=== PATIENT | female | born 1975 | race Caucasian/White ===

== ENCOUNTER 2016-11-21 12:11 | Emergency (ER) | payer MEDICARE, MEDICAID ==
[~2016-11-21] VITALS: Ht 152.4 cm; Wt 63.5 kg
[2016-11-21] MEDS ORDERED: NKM (12:27)
--- NOTE | 2016-11-21 12:42 | Emergency Room Report ---
History of Present Illness General Chief Complaint: Abdominal Pain Source: Patient Present Illness HPI 41-year-old female presents emergency department complaining of nausea, vomiting and diarrhea x3 days. Patient reports that nausea vomiting or current on the first day with diarrhea starting on the second day. Patient denies recent travel reports grandmother had similar symptoms. Denies fever she reports chills. Patient reports abdominal cramping pain generalized throughout the abdomen which is temporarily relieved with bowel movements and after vomiting. Patient denies blood in the vomit or stool. She denies recent antibiotic use. She denies frequency urgency or hematuria. She denies . Denies CP, Palpitations, LOC, AMS, dizziness, Changes in Vision, Sensation, paresthesias, or a sudden severe headache. Allergies: Coded Allergies: No Known Allergies (Unverified , 11/21/16) Patient History Past Medical History: see triage record Past Surgical History: none Pertinent Family History: none Last Menstrual Period: last week Now: No Immunizations: UTD Reviewed Nursing Documentation: PMH: Agreed, PSxH: Agreed Nursing Documentation-PMH Past Medical History: No Stated History Review of Systems All Other Systems: negative except mentioned in HPI Physical Exam Vital Signs Date Time Temp Pulse Resp B/P Pulse Ox O2 Delivery O2 Flow Rate FiO2 11/21/16 12:23 99.0 64 20 135/87 99 Room Air Sp02 EP Interpretation: reviewed, normal General Appearance: no apparent distress, alert, GCS 15, non-toxic Head: normocephalic, atraumatic Eyes: bilateral eye PERRL, bilateral eye normal inspection ENT: hearing grossly normal, normal pharynx, no angioedema, normal voice Neck: full range of motion, supple/symm/no masses Respiratory: chest non-tender, lungs clear, normal breath sounds, speaking full sentences Cardiovascular #1: regular rate, rhythm, no edema Gastrointestinal: normal bowel sounds - mildly hyperactive BS in all 4 quadrants. , non tender, soft, no guarding, no rebound, other - Negative [place] signs, Negative MacBurney's sign, Negative Rosvigns Sign, Negative Psoas , No Peritoneal signs. Rectal: deferred Genitourinary: normal inspection, no CVA tenderness Musculoskeletal: back normal, gait/station normal, normal range of motion, non- tender Neurologic: alert, oriented x3, responsive, motor strength/tone normal, sensory intact, speech normal Psychiatric: judgement/insight normal, memory normal, mood/affect normal Skin: normal color, no rash, warm/dry, well hydrated Lymphatic: no adenopathy Medical Decision Making PA Attestation Dr. Salguero is my supervising Physician whom patient management has been discussed with. Diagnostic Impression: Primary Impression: Abdominal pain Qualified Codes: R10.84 - Generalized abdominal pain Additional Impression: Gastroenteritis ER Course 41-year-old female presents emergency department complaining of nausea, vomiting and diarrhea x3 days. Patient reports that nausea vomiting or current on the first day with diarrhea starting on the second day. Patient denies recent travel reports grandmother had similar symptoms. Denies fever she reports chills. Patient reports abdominal cramping pain generalized throughout the abdomen which is temporarily relieved with bowel movements and after vomiting. Patient denies blood in the vomit or stool. She denies recent antibiotic use. She denies frequency urgency or hematuria. She denies . Ddx considered but are not limited to GE, colitis, acute appy, SBO, * Vital signs: pt. is afebrile, H&PE are most consistent with GE, PE of abdomen did not suggest acute intra- abdominal process no suspicion for appendicitis, no appreciable TTP, hyperactive BS in all 4 quadrants. ORDERS: -CBC:unremarkable -CMP:electrolytes are ok, good renal function. -Lipase: WNl -UA: few bacteria many epithelial cells, no wbc's consistent with contamination. -Urine Hcg: negative ED INTERVENTIONS: -1000 NS iv hydration, - 4mg IVP zofran for nausea. -20mg Bentyl PO -150mg Zantac PO -20mg Toradol IV for pain -- Pt was able to tolerate oral fluid challenge. d/w pt. results of lab work, and close follow up instructions. d/w pt. to return to ED with worsening or new symptoms. DISCHARGE: At this time pt. is stable for d/c to home. Will provide printed patient care instructions, and any necessary prescriptions. Care plan and follow up instructions have been discussed with the patient prior to discharge. Labs Test 11/21/16 12:40 White Blood Count 12.7 K/UL (4.8-10.8) Red Blood Count 4.78 M/UL (4.20-5.40) Hemoglobin 14.8 G/DL (12.0-16.0) Hematocrit 46.5 % (37.0-47.0) Mean Corpuscular Volume 97 FL (80-99) Mean Corpuscular Hemoglobin 31.0 PG (27.0-31.0) Mean Corpuscular Hemoglobin Concent 31.9 G/DL (32.0-36.0) Red Cell Distribution Width 11.8 % (11.6-14.8) Platelet Count 498 K/UL (150-450) Mean Platelet Volume 5.4 FL (6.5-10.1) Neutrophils (%) (Auto) % (45.0-75.0) Lymphocytes (%) (Auto) % (20.0-45.0) Monocytes (%) (Auto) % (1.0-10.0) Eosinophils (%) (Auto) % (0.0-3.0) Basophils (%) (Auto) % (0.0-2.0) Differential Total Cells Counted 100 Neutrophils % (Manual) 88 % (45-75) Lymphocytes % (Manual) 10 % (20-45) Monocytes % (Manual) 2 % (1-10) Eosinophils % (Manual) 0 % (0-3) Basophils % (Manual) 0 % (0-2) Band Neutrophils 0 % (0-8) Platelet Estimate Adequate Platelet Morphology Normal Hypochromasia Macrocytosis 1+ Urine Color Yellow Urine Appearance Slightly cloudy Urine pH 5 (4.5-8.0) Urine Specific [place] 1.025 (1.005-1.035) Urine Protein 2+ (NEGATIVE) Urine Glucose (UA) Negative (NEGATIVE) Urine Ketones 3+ (NEGATIVE) Urine Occult Blood 1+ (NEGATIVE) Urine Nitrite Negative (NEGATIVE) Urine Bilirubin Negative (NEGATIVE) Urine Urobilinogen Normal MG/DL (0.0-1.0) Urine Leukocyte Esterase 1+ (NEGATIVE) Urine RBC 2-4 /HPF (0 - 2) Urine WBC 2-4 /HPF (0 - 2) Urine Squamous Epithelial Cells Moderate /LPF (NONE/OCC) Urine Bacteria Few /HPF (NONE) Urine HCG, Qualitative Negative Sodium Level 142 mEQ/L (135-145) Potassium Level 3.4 mEQ/L (3.4-4.9) Chloride Level 99 mEQ/L (98-107) Carbon Dioxide Level 23 mEQ/L (20-30) Anion Gap 20 (5-15) Blood Urea Nitrogen 8 mg/dL (7-23) Creatinine 1.0 mg/dL (0.5-0.9) Estimat Glomerular Filtration Rate > 60 mL/min (>60) Glucose Level 156 mg/dL (74-106) Calcium Level 9.8 mg/dL (8.6-10.2) Total Bilirubin 0.4 mg/dL (0.0-1.2) Aspartate Amino Transf (AST/SGOT) 19 U/L (5-40) Alanine Aminotransferase (ALT/SGPT) 8 U/L (3-33) Alkaline Phosphatase 49 U/L (35-104) Total Protein 9.8 g/dL (6.6-8.7) Albumin 5.2 g/dL (3.5-5.2) Globulin 4.6 g/dL Albumin/Globulin Ratio 1.1 (1.0-2.7) Lipase 22 U/L (< 60) Last Vital Signs Date Time Temp Pulse Resp B/P Pulse Ox O2 Delivery O2 Flow Rate FiO2 11/21/16 12:23 99.0 64 20 135/87 99 Room Air Disposition: HOME, SELF-CARE Condition: Stable Scripts Ranitidine Hcl* (ZANTAC*) 150 Mg Tablet 150 MG ORAL TWICE A DAY for 30 Days, #60 TAB Prov: Lisset Hernandez 11/21/16 Metoclopramide Hcl* (REGLAN*) 10 Mg Tablet 10 MG ORAL THREE TIMES A DAY, #20 TAB Prov: Lisset [email or web address] 11/21/16 Dicyclomine Hcl* (BENTYL*) 10 Mg Capsule 10 MG ORAL FOUR TIMES A DAY for 4 Days, #16 CAP Prov: Lisset Hernandez. 11/21/16 Patient Instructions: Abdominal Pain, Adult, Viral Gastroenteritis, Adult Additional Instructions: Take medications as directed. Follow up with PCP in 3-5 days Return sooner to ED if new symptoms occur, or current symptoms become worse. - Please note that this Emergency Department Report was dictated using [employer] analyst technology software, occasionally this can lead to erroneous entry secondary to interpretation by the dictation equipment. Lisset Hernandez Nov 21, 2016 12:42
[2016-11-21] MEDS ORDERED: Ketorolac 30mg Inj IV ONE (12:45)
[2016-11-21] MEDS: Dicyclomine 10mg Cap ORAL ONE ×2 (12:46→13:59)
[2016-11-21 13:01] LABS: APPEARANCE,URINE SLIGHTLY CLOUDY; KETONES,URINE 3+ (NEGATIVE); LEUKOCYTE ESTERASE ,URINE 1+ (NEGATIVE); MEAN CORPUSCULAR HGB CONC 31.9 G/DL (32.0-36.0); MEAN CORPUSCULAR VOLUME 97 FL (80-99); MEAN PLATELET VOLUME 5.4 FL (6.5-10.1); NITRITE,URINE NEGATIVE (NEGATIVE); PH,URINE 5 (4.5-8.0); PLATELET COUNT 498 K/UL (150-450); PROTEIN,URINE 2+ (NEGATIVE); RED BLOOD COUNT 4.78 M/UL (4.20-5.40); RED CELL DISTRIBUTION WIDTH 11.8 % (11.6-14.8); UROBILINOGEN,URINE NORMAL MG/DL (0.0-1.0); WHITE BLOOD COUNT 12.7 K/UL (4.8-10.8)
[2016-11-21 13:11] LABS: BACTERIA,URINE FEW /HPF; SQUAMOUS EPITHELIAL CELL,UR MODERATE /LPF (NONE/OCC)
[2016-11-21 13:14] LABS: ALANINE AMINOTRANSFERASE 8 U/L (3-33); ALBUMIN/GLOBULIN RATIO 1.1 (1.0-2.7); ANION GAP 20 (5-15); ASPARTATE AMINO TRANSFERASE 19 U/L (5-40); CALCIUM 9.8 mg/dL (8.6-10.2); CARBON DIOXIDE 23 mEQ/L (20-30); CHLORIDE 99 mEQ/L (98-107); GLOMERULAR FILTRATION RATE > 60 mL/min (>60); HEMOLYSIS 2; LIPASE 22 U/L (< 60); POTASSIUM 3.4 mEQ/L (3.4-4.9); SODIUM 142 mEQ/L (135-145); TOTAL PROTEIN 9.8 g/dL (6.6-8.7)
[2016-11-21 13:23] LABS: BAND NEUTROPHILS % (MANUAL) 0 % (0-8); BASOPHILS % (MANUAL) 0 % (0-2); EOSINOPHILS % (MANUAL) 0 % (0-3); LYMPHOCYTES % (MANUAL) 10 % (20-45); NEUTROPHILS % (MANUAL) 88 % (45-75); PLATELET ESTIMATE ADEQUATE; PLATELET MORPHOLOGY NORMAL; TOTAL CELLS COUNTED 100
[2016-11-21 13:24] LABS: MACROCYTES 1+
[2016-11-21 13:26] VITALS: BP 121/59
[2016-11-21] MEDS ORDERED: Famotidine 20 MG/ 2ML VIAL IVP ONE (13:30)
[2016-11-21] MEDS ORDERED: Metoclopramide 10mg/2ml Inj IVP ONE (13:30)
[2016-11-21] MEDS ORDERED: Lidocaine 2% Visc 15ml soln ORAL ONE (13:45)
[2016-11-21] MEDS ORDERED: BENTYL10 MG ORAL (13:55)
[2016-11-21] MEDS ORDERED: ZANTAC150 MG ORAL (13:55)
[2016-11-21] MEDS ORDERED: REGLAN10 MG ORAL (13:55)
[2016-11-21 14:17] VITALS: BP 127/72
[2016-11-21 14:33] VITALS: BP 127/72
== END 2016-11-21 14:49 | disposition home or self-care (01) ==
LOC: EMR 13:15
DX: K52.9 Noninfective gastroenteritis and colitis, unspecified (principal); R10.84 Generalized abdominal pain
CPT/HCPCS: 36415; 80053; 81003; 81025; 83690; 85007; 85025; 96374; 96375; 99284; J1885; J2405; J2765; S0028

== ENCOUNTER 2018-08-28 15:39 | Emergency (ER) | payer MEDICARE, MEDICAID ==
[~2018-08-28] VITALS: Ht 152.4 cm; Wt 81.6 kg
[~2018-08-28 15:39] MED LIST: BENTYL10 MG ORAL; NKM; REGLAN10 MG ORAL; ZANTAC150 MG ORAL
[2018-08-28 15:53] VITALS: BP 121/73
--- NOTE | 2018-08-28 16:12 | Emergency Room Report ---
History of Present Illness General Chief Complaint: Flu Like Symptoms Source: Patient Present Illness HPI 43-year-old female patient presents the ER complaining of nausea vomiting diarrhea for the past 2 days. Also complaining of sore throat and headache during this time. denies blood in vomit or stool. Denies recent travel outside the country. Also complaining of cough. Denies shortness of breath or chest pain. Denies neck or calf pain. Patient afebrile in the ER currently. Denies abdominal pain. Denies dysuria, hematuria. Reports last episode of vomiting an hour ago. States is been able to tolerate p.o. Gatorade however has not been able to eat food. Denies history of asthma or heart disease. States received flu vaccination this year. Allergies: Coded Allergies: No Known Allergies (Unverified , 11/21/16) Patient History Past Medical History: see triage record Last Menstrual Period: 08/22/18 Reviewed Nursing Documentation: PMH: Agreed; PSxH: Agreed Nursing Documentation-PMH Past Medical History: No Stated History Review of Systems All Other Systems: negative except mentioned in HPI Physical Exam Vital Signs Date Time Temp Pulse Resp B/P (MAP) Pulse Ox O2 Delivery O2 Flow Rate FiO2 08/28/18 15:46 98.1 68 18 121/73 95 Room Air Sp02 EP Interpretation: reviewed, normal General Appearance: well appearing, no apparent distress, alert, GCS 15, non- toxic Head: normocephalic, atraumatic Eyes: bilateral eye normal inspection, bilateral eye PERRL ENT: hearing grossly normal, normal pharynx, no angioedema, normal voice, TMs + canals normal, uvula midline, moist mucus membranes, other - Uvula midline Neck: full range of motion Respiratory: lungs clear, normal breath sounds, no rhonchi, no respiratory distress, no accessory muscle use, no wheezing, speaking full sentences Cardiovascular #1: regular rate, rhythm, no edema Gastrointestinal: non tender, soft, no mass, non-distended, no guarding, no rebound, other - Negative [place], negative Rovsing Genitourinary: no CVA tenderness Musculoskeletal: back normal, digits/nails normal, gait/station normal, normal range of motion, non-tender Neurologic: alert, oriented x3, responsive, motor strength/tone normal, sensory intact Skin: no rash Lymphatic: no adenopathy Medical Decision Making PA Attestation Dr. Cai is my supervising Physician whom patient management has been discussed with. Diagnostic Impression: Primary Impression: Vomiting and diarrhea Additional Impression: Flu-like symptoms ER Course Pt. presents to the ED c/o vomiting and diarrhea, cough and congestion. Ddx considered but are not limited to viral syndrome, gastritis, enteritis, influenza, acid reflux, viral URI, PNA. Vital signs: are WNL, pt. is afebrile at discharge. ORDERS: none required at this time, the diagnosis is clinical ED COURSE: Provide patient with Zofran, GI cocktail, IV fluids. No abdominal TTP, negative ROvsing, normal bowel sounds. PE benign. Lungs clear to auscultation, no wheezes rhonchi rales. Chest x-ray negative for acute disease, low suspicion for pneumonia, does not require antibiotics at this time. UA shows many epithelial cells, patient denies symptoms, does not require abx, low suspicion for UTI, urine negative. Will provide patient with Tamiflu to cover for influenza. Patient informed of likely viral cause of symptoms. No fever, no blood in stool, no recent travel or hospitalizations, does not require abx treatment at this time. No signs of dehydration, moist mucus membranes, cap refil <2seconds, normal skin turgor. Patient reports eating and drinking normally. Patient instructed on BRAT diet. Patient instructed to remain hydrated, drink plenty of fluids. Patient questions asked and answered. Patient states understanding and agreement to treatment plan. ER precautions given. Patient reports feeling better. Able to tolerate PO fluids prior to discharge. DISCHARGE: At this time pt. is stable for d/c to home. Patient is resting comfortably, laughing, in no acute distress, nontoxic appearing. Will provide printed patient care instructions, and any necessary prescriptions. Care plan and follow up instructions have been discussed with the patient prior to discharge. Patient instructed to followup with PCP in 3-5 days. Patient reports understanding and agreement to treatment plan. Patient questions asked and answered. ER precautions given; patient instructed to return to ER for new or worsening of symptoms including but not limited to fever, intractable vomiting, severe abdominal pain, blood in stool. - Please note that this Emergency Department Report was dictated using [email or web address] automobile technology software, occasionally this can lead to erroneous entry secondary to interpretation by the dictation equipment. Labs Test 08/28/18 16:17 Urine Color Yellow Urine Appearance Slightly cloudy Urine pH 5 (4.5-8.0) Urine Specific [place] 1.020 (1.005-1.035) Urine Protein 1+ (NEGATIVE) Urine Glucose (UA) Negative (NEGATIVE) Urine Ketones Negative (NEGATIVE) Urine Blood 2+ (NEGATIVE) Urine Nitrite Negative (NEGATIVE) Urine Bilirubin Negative (NEGATIVE) Urine Urobilinogen Normal MG/DL (0.0-1.0) Urine Leukocyte Esterase 1+ (NEGATIVE) Urine RBC 5-10 /HPF (0 - 2) Urine WBC 2-4 /HPF (0 - 2) Urine Squamous Epithelial Cells Many /LPF (NONE/OCC) Urine Bacteria Moderate /HPF (NONE) Urine HCG, Qualitative Negative (NEGATIVE) Chest X-Ray Diagnostic Results Chest X-Ray Diagnostic Results : Chest X-Ray Ordered: Yes # of Views/Limited/Complete: 1 View Indication: Chest Pain EP Interpretation: Yes PA Xray: Interpretation reviewed, by supervising MD, and agrees with findings. Interpretation: no consolidation, no effusion, no pneumothorax Impression: No acute disease PA Scribe Text Walt Estrada PA-Delvin Last Vital Signs Date Time Temp Pulse Resp B/P (MAP) Pulse Ox O2 Delivery O2 Flow Rate FiO2 08/28/18 15:57 68 18 Room Air 08/28/18 15:53 98.1 121/73 95 Status: improved Disposition: HOME, SELF-CARE Condition: Stable Scripts Oseltamivir Phosphate (Tamiflu) 75 Mg Capsule 75 MG ORAL TWICE A DAY for 5 Days, #10 CAP Prov: Perez [email or web address] 08/28/18 Ondansetron (Zofran) 4 Mg Tablet 4 MG ORAL Q8H PRN for Nausea & Vomiting, #10 TAB 0 Refills Prov: Perez Estrada 08/28/18 D-Methorphan/PE/Acetaminophen (Sudafed PE Pressure+Pain+Cough) 1 Each Tablet 1 EACH PO TID, #24 TAB Prov: Perez [email or web address] 08/28/18 Patient Instructions: Diarrhea, Adult, [id number], Food Choices to Help Relieve Diarrhea, Adult, Influenza, Adult, [id number], Nausea and Vomiting, Adult, [id number], Sore Throat, [id number] Additional Instructions: Followup with primary care provider in 3 -5 days. Salt water gargles Take Tylenol for pain and fever symptoms Drink plenty of water. Avoid spicy foods, avoid dairy foods. BRAT diet: bananas, rice, apple sauce, toast. Consider Immodium for diarrhea and Tylenol for pain symptoms. Take medications as directed. Patient questions asked and answered. ER precautions given, patient instructed to return to ER immediately for any new or worsening of symptoms. Perez Estrada Aug 28, 2018 16:12
[2018-08-28] MEDS ORDERED: Mylanta II UD 30ml ORAL ONE (16:15)
[2018-08-28] MEDS ORDERED: Lidocaine 2% Visc 15ml soln ORAL ONE (16:15)
[2018-08-28] MEDS ORDERED: Dicyclomine HCl 10mg/5ml oral soln ORAL ONE (16:15)
[2018-08-28 16:30] LABS: APPEARANCE,URINE SLIGHTLY CLOUDY; BILIRUBIN, URINE NEGATIVE (NEGATIVE); GLUCOSE, URINE (UA) NEGATIVE (NEGATIVE); KETONES,URINE NEGATIVE (NEGATIVE); LEUKOCYTE ESTERASE ,URINE 1+ (NEGATIVE); NITRITE,URINE NEGATIVE (NEGATIVE); PH,URINE 5 (4.5-8.0); PROTEIN,URINE 1+ (NEGATIVE); UROBILINOGEN,URINE NORMAL MG/DL (0.0-1.0)
[2018-08-28 16:35] LABS: COLOR,URINE YELLOW
[2018-08-28] MEDS ORDERED: ZOFRAN4 MG ORAL (17:53)
[2018-08-28] MEDS ORDERED: SUDAFED PE PRE1 EACH PO (17:53)
[2018-08-28] MEDS ORDERED: TAMIFLU75 MG ORAL (17:53)
--- NOTE | 2018-08-28 18:21 | Diagnostic Imaging Report ---
EXAM: XR Chest, 1 View CLINICAL HISTORY: PAIN TECHNIQUE: Frontal view of the chest. COMPARISON: No relevant prior studies available. FINDINGS: Lungs: Hypoventilatory exam. Vascular crowding. Cannot exclude congestion. Pleural space: Unremarkable. No pneumothorax. Heart: Unremarkable. No cardiomegaly. Mediastinum: Unremarkable. Bones/joints: Unremarkable. IMPRESSION: Hypoventilatory exam. Vascular crowding. Cannot exclude congestion.
[2018-08-28 18:47] VITALS: BP 121/73
== END 2018-08-28 18:25 | disposition home or self-care (01) ==
LOC: EMR 17:50
DX: R11.2 Nausea with vomiting, unspecified (principal); R19.7 Diarrhea, unspecified; J11.1 Influenza due to unidentified influenza virus with other respiratory manifestations
CPT/HCPCS: 71045; 81003; 81025; 87086; 96361; 96374; 99284; J2405